=== PATIENT | female | born 1980 | race Native Hawaiian/Other Pacific Islander ===

== ENCOUNTER 2017-01-08 00:25 | Emergency (ER) | payer OTHER ==
[~2017-01-08] VITALS: Ht 152.4 cm; Wt 827.8 kg
[~2017-01-08 00:25] MED LIST: LISI20TA11 PO
[2017-01-08 00:35] VITALS: BP 135/86; TEMP 98.3
== END 2017-01-08 01:05 | disposition home or self-care (01) ==
LOC: ED 00:25
PROC: 0HQ0XZZ Repair Scalp Skin, External Approach (ICD-10-PCS; principal; 2017-01-08)
DX: S01.01XA Laceration without foreign body of scalp, initial encounter (principal); W22.09XA Striking against other stationary object, initial encounter; Y92.098 Other place in other non-institutional residence as the place of occurrence of the external cause
CPT/HCPCS: 99282

== ENCOUNTER 2017-02-13 22:22 | Emergency (ER) | payer OTHER ==
[~2017-02-13] VITALS: Ht 152.4 cm; Wt 82.6 kg
[2017-02-13 23:37] VITALS: BP 146/80; TEMP 98.8
== END 2017-02-13 23:38 | disposition home or self-care (01) ==
LOC: ED 22:22
DX: M94.0 Chondrocostal junction syndrome [Tietze] (principal)
CPT/HCPCS: 36415; 93005; 96360; 96372; 99284; J1885

== ENCOUNTER 2018-04-29 19:06 | Emergency (ER) | payer OTHER ==
[~2018-04-29] VITALS: Ht 152.4 cm; Wt 94.8 kg
[2018-04-29 20:10] VITALS: BP 163/85; TEMP 98.5
== END 2018-04-29 20:10 | disposition home or self-care (01) ==
LOC: ED 19:06
DX: H92.01 Otalgia, right ear (principal); H61.21 Impacted cerumen, right ear; G43.909 Migraine, unspecified, not intractable, without status migrainosus
CPT/HCPCS: 99282

== ENCOUNTER 2021-04-01 11:55 | Outpatient (CLI) | payer OTHER | END 2021-04-01 19:00 | disposition home or self-care (01) | LOC: RAD 11:55 | PROVIDERS: ATTEND Nurse Practitioner Family | DX: Z03.89 Encounter for observation for other suspected diseases and conditions ruled out (principal) ==

== ENCOUNTER 2021-04-03 12:27 | Emergency (ER) | payer OTHER ==
[~2021-04-03] VITALS: Ht 152.4 cm; Wt 94.8 kg
[2021-04-03 12:40] VITALS: TEMP 97.5
[2021-04-03 13:19] VITALS: BP 141/89
[2021-04-03 13:24] LABS: PLATELET COUNT 250 K/uL (152-353)
[2021-04-03 13:29] LABS: POTASSIUM 3.9 mmol/L (3.6-5.2); SODIUM 143 mmol/L (136-145)
== END 2021-04-03 14:12 | disposition home or self-care (01) ==
LOC: ED 12:27
PROVIDERS: Emergency Medicine
DX: R06.02 Shortness of breath (principal)
CPT/HCPCS: 80048; 84484; 85027; 93005; 99283

== ENCOUNTER 2022-09-05 00:51 | Emergency (ER) | payer OTHER ==
[~2022-09-05] VITALS: Ht 152.4 cm; Wt 71.2 kg
[2022-09-05 01:00] VITALS: BP 177/101; TEMP 98.2
[2022-09-05 02:14] LABS: PLATELET COUNT 266 K/uL (152-353)
[2022-09-05 02:16] LABS: POTASSIUM 3.8 mmol/L (3.6-5.2)
[2022-09-05 02:27] LABS: PARTIAL THROMBOPLASTIN TIME 23.6 SECONDS (24.5-33.6)
== END 2022-09-05 03:50 | disposition home or self-care (01) ==
LOC: ED 00:51
PROVIDERS: Family Medicine
DX: R07.89 Other chest pain (principal); F41.8 Other specified anxiety disorders
CPT/HCPCS: 36415; 80053; 80307; 81002; 82550; 84484; 85027; 85610; 85730; 93005; 99282